=== PATIENT | male | born 1960 | race Caucasian/White ===

== ENCOUNTER 2016-07-06 11:14 | Emergency (ER) | payer OTHER ==
[2016-07-06 14:30] VITALS: BP 147/86
== END 2016-07-06 14:30 | disposition home or self-care (01) ==
LOC: ED 11:14
DX: J20.9 Acute bronchitis, unspecified (principal)
CPT/HCPCS: J7620

== ENCOUNTER 2016-07-07 11:55 | Emergency (ER) | payer OTHER ==
[2016-07-07 11:59] VITALS: BP 142/77
== END 2016-07-07 14:24 | disposition home or self-care (01) ==
LOC: ED 11:55
DX: R91.8 Other nonspecific abnormal finding of lung field (principal)

== ENCOUNTER 2018-07-03 02:39 | Emergency (ER) | payer OTHER ==
[~2018-07-03] VITALS: Ht 167.6 cm; Wt 71.2 kg
[2018-07-03 02:50] VITALS: Ht 167.6 cm; Wt 71.2 kg
[2018-07-03 04:45] VITALS: BP 138/78
== END 2018-07-03 04:45 | disposition home or self-care (01) ==
LOC: ED 02:39
DX: J98.01 Acute bronchospasm (principal)
CPT/HCPCS: J7512; J7613; J7644; Q0092

== ENCOUNTER 2018-08-31 09:39 | Emergency (ER) | payer OTHER ==
[~2018-08-31] VITALS: Ht 165.1 cm; Wt 69.9 kg
[2018-08-31 09:49] VITALS: Ht 165.1 cm; Wt 69.9 kg
[2018-08-31 13:54] VITALS: BP 131/90
== END 2018-08-31 13:54 | disposition home or self-care (01) ==
LOC: ED 09:39
DX: J98.01 Acute bronchospasm (principal)
CPT/HCPCS: J7512; J7613

== ENCOUNTER 2018-09-22 10:56 | Emergency (ER) | payer OTHER ==
[~2018-09-22] VITALS: Ht 167.6 cm; Wt 71.2 kg
[2018-09-22 11:00] VITALS: Ht 167.6 cm; Wt 71.2 kg
[2018-09-22 15:36] VITALS: BP 120/78
== END 2018-09-22 15:36 | disposition home or self-care (01) ==
LOC: ED 10:56
DX: J40 Bronchitis, not specified as acute or chronic (principal); F17.210 Nicotine dependence, cigarettes, uncomplicated; Z71.6 Tobacco abuse counseling
CPT/HCPCS: 99406; J7512; J7613; J7644; Q0092

== ENCOUNTER 2019-06-08 21:12 | Inpatient (IN) | payer OTHER ==
[~2019-06-08] VITALS: Ht 165.1 cm; Wt 66.0 kg
[2019-06-08 22:32] LABS: BASOPHIL % 0.4 % (0-2); PLATELET COUNT 186 x10^3mcL (130-400); RED CELL DISTRIBUTION WIDTH 13.4 % (11.5-14.5)
[2019-06-08 22:54] LABS: CARBON DIOXIDE 24.7 mmol/L (21-32); CHLORIDE SERUM 101 mmol/L (98-107); CREATININE SERUM 1.1 mg/dL (0.7-1.3); GFR1 > 60 mL/min; GLUCOSE SERUM 115 mg/dL (74-106); POTASSIUM SERUM 3.6 mmol/L (3.5-5.1); SODIUM SERUM 139 mmol/L (136-145)
[2019-06-08 22:57] LABS: ALBUMIN 3.5 g/dL (3.4-5.0); ALKALINE PHOSPHATASE 74 U/L (46-116); ALT/SGPT 41 U/L (16-63); AST/SGOT 58 U/L (15-37); BILIRUBIN TOTAL 0.5 mg/dL (0.20-1.00); TOTAL PROTEIN, SERUM 6.9 g/dL (6.4-8.2)
[2019-06-09 03:00] VITALS: BP 121/68
[2019-06-09 05:57] VITALS: BP 129/67
[2019-06-09 08:11] VITALS: BP 121/65
[2019-06-09 12:07] VITALS: BP 135/81
[2019-06-09 13:50] LABS: UA SPECIFIC GRAVITY 1.025 (1.005-1.035); microscopic required? YES; urine erythrocyte TRACE (NEGATIVE)
[2019-06-09 16:30] VITALS: BP 134/70
[2019-06-09 20:16] VITALS: BP 139/63
[2019-06-10 05:44] VITALS: BP 127/73
[2019-06-10 06:55] LABS: CALCIUM 7.7 mg/dL (8.5-10.1); CARBON DIOXIDE 25.9 mmol/L (21-32); CHLORIDE SERUM 108 mmol/L (98-107); CREATININE SERUM 0.9 mg/dL (0.7-1.3); GFR1 > 60 mL/min; GLUCOSE SERUM 109 mg/dL (74-106); MAGNESIUM 2.3 mg/dL (1.8-2.4); POTASSIUM SERUM 3.9 mmol/L (3.5-5.1); SODIUM SERUM 142 mmol/L (136-145)
[2019-06-10 08:02] VITALS: BP 127/67
[2019-06-10 11:28] VITALS: BP 151/77
[2019-06-10] MEDS ORDERED: VAL5 PO (11:37)
[2019-06-10] MEDS ORDERED: FOL1 PO (11:37)
[2019-06-10] MEDS ORDERED: THI100 PO (11:37)
[2019-06-10 12:11] LABS: AMPHETAMINE QUAL UR NONE DETECTED (See below)
[2019-06-10 12:42] VITALS: BP 151/71
== END 2019-06-10 13:38 | disposition home or self-care (01) | DRG 351 ==
LOC: ED 21:12 → DU 06-09 01:36 → EDBEDREQ 06-09 01:43 → DU 06-09 02:50
PROVIDERS: Emergency Medicine; Hospitalist; ADMIT Internal Medicine Pulmonary Disease
DX: M62.82 Rhabdomyolysis (principal); G93.41 Metabolic encephalopathy; I10 Essential (primary) hypertension; J44.9 Chronic obstructive pulmonary disease, unspecified; W01.0XXA Fall on same level from slipping, tripping and stumbling without subsequent striking against object, initial encounter; Y90.9 Presence of alcohol in blood, level not specified; F10.159 Alcohol abuse with alcohol-induced psychotic disorder, unspecified; Y93.89 Activity, other specified; Y92.89 Other specified places as the place of occurrence of the external cause; Y99.8 Other external cause status; Z71.41 Alcohol abuse counseling and surveillance of alcoholic; Z79.899 Other long term (current) drug therapy
CPT/HCPCS: 97116-GP; G0378; G0480; J1644; J3411; J3475; J7040

== ENCOUNTER 2019-10-08 13:25 | Emergency (ER) | payer OTHER ==
[~2019-10-08] VITALS: Ht 165.1 cm; Wt 67.6 kg
[~2019-10-08 13:25] MED LIST: FOL1 PO; THI100 PO; VAL5 PO
[2019-10-08 13:43] VITALS: Ht 165.1 cm; Wt 67.6 kg
[2019-10-08 15:08] VITALS: BP 127/71
== END 2019-10-08 15:08 | disposition home or self-care (01) ==
LOC: ED 13:25
DX: M54.5 Low back pain (principal)